=== PATIENT | male | born 1950 | race Caucasian/White ===

== ENCOUNTER 2016-12-02 10:45 | Emergency (ER) | payer OTHER ==
--- NOTE | 2016-12-02 10:55 | EDPHY ---
H & P Stated Complaint: Fever "100.3" Time Seen by Provider: 12/02/16 10:55 - Personal History Current Tetanus Diphtheria and Acellular Pertussis (TDAP): Yes - Medical/Surgical History Other PMH: Bladder stones - Social History Smoking Status: Never smoked Constitutional: Initial Vital Signs Temperature (C) 37.9 C 12/02/16 10:52 Heart Rate 92 12/02/16 10:52 Respiratory Rate 16 12/02/16 10:52 Blood Pressure 133/71 H 12/02/16 10:52 O2 Sat (%) 94 12/02/16 10:52 O2 Delivery Mode Room Air Allergies/Adverse Reactions: Penicillins Allergy (Mild, Verified 02/26/11 14:14) Rash Home Medications: Medication Instructions Recorded Nitrofurantoin Monohyd/M-Cryst 100 mg PO BID #30 capsule 12/02/16 [Macrobid 100 mg Capsule] Medical Decision Making ED Course/Re-evaluation: CHIEF COMPLAINT: UTI symptoms HISTORY OF PRESENT ILLNESS: The patient is a 66 y/o male arriving with his complaining of a fever and UTI symptoms for the last couple weeks. He has a history of "14 bladder stones" and is scheduled for surgery to remove these next week. He was treated for a UTI about 1 month ago with what sounds like Macrobid. His symptoms improved for about 10 days and then gradually returned. He has some dysuria and the sensation of a spasm while urinating. This morning he had a fever of 100.3F. He denies flank pain, vomiting, nausea, or abdominal pain. He denies other pertinent medical history. REVIEW OF SYSTEMS: A 10 point review of systems was performed and is negative with the exception of the elements mentioned in the history of present illness. PHYSICAL EXAM: HR, BP, O2 Sat, RR. Temp noted General Appearance: Alert, well hydrated, appropriate, and non-toxic appearing. Head: Atraumatic without scalp tenderness or obvious injury Eyes: Pupils equal, round, reactive to light and accommodation, EOMI, no trauma , no injection. Nose: Atraumatic, no rhinorrhea, clear. Throat: Mucus membranes moist. Neck: Supple, nontender, no lymphadenopathy. Respiratory: No retractions, no distress, no wheezes, and no accessory muscle use. Lungs are clear to auscultation bilaterally. Cardiovascular: Regular rate and rhythm, no murmurs, rubs, or gallops. Good capillary refill all extremities. Gastrointestinal: Abdomen is soft, nontender, non-distended, no masses, no rebound, no guarding, no peritoneal signs. Musculoskeletal: Normal active ROM of all extremities, atraumatic. Neurological: Alert, appropriate, and interactive. Nonfocal neuro exam. Skin: No rashes, good turgor, no nodules on palpation. Past medical history: Bladder stones, basal cell carcinoma Past surgical history: cystoscopy [address] Zuleta Family history: noncontributory Social history: at bedside. Urologist: Dr. Gilberto Garcia Prior medical records reviewed including surgical note 02/28/11. DIAGNOSTICS/PROCEDURES/CRITICAL CARE TIME: The 12 lead EKG was interpreted by myself. Sinus rhythm rate 71 with early repolarization. See hard copy and/or "tracemaster" electronic copy for interpretation. The repeat 12 lead EKG was interpreted by myself. Sinus rhythm rate 68 with early repolarization. See hard copy and/or "tracemaster" electronic copy for interpretation. DIFFERENTIAL DIAGNOSIS: The differential diagnosis for the patient's fever included but was not limited to pneumonia, urinary tract infection, viral syndrome, meningitis, and sepsis. MEDICAL DECISION MAKING: This is a 66 y/o male with known bladder stones and recent UTI who presents with recurrent UTI symptoms for the last couple weeks. He is well-appearing on exam without abdominal tenderness. Plan for IV, sepsis labs, and UA. Patient experienced a vagal episode during IV placement with resolving bradycardia and hypotension. His states this has happened several times previously during blood draws and he responds exactly the same each time. We will check an EKG as well. His EKG shows sinus mechanism with ST changes that are likely due to repolarization. We have no prior EKGs available for comparison. He has no chest pain, shortness of breath, other symptoms, or known cardiac risk factors. Repeat EKG is similar. Patient will receive 1gm IV Ceftriaxone here and be discharged with Macrobid for his UTI as this has worked for him in the past. He has urology follow up scheduled for next week. We've given strict return precautions. He is comfortable with this plan. - Data Points Laboratory Results: Laboratory Results 12/02/16 11:10 12/02/16 11:10 12/02/16 12/02/16 12/02/16 11:10 11:10 11:10 WBC 13.41 10^3/uL H 10^3/uL (3.80-9.50) RBC 4.85 10^6/uL 10^6/uL (4.40-6.38) Hgb 15.7 g/dL g/dL (13.7-17.5) Hct 44.2 % % (40.0-51.0) MCV 91.1 fL fL (81.5-99.8) MCH 32.4 pg pg (27.9-34.1) MCHC 35.5 g/dL g/dL (32.4-36.7) RDW 12.9 % % (11.5-15.2) Plt Count 180 10^3/uL 10^3/uL (150-400) MPV 10.6 fL fL (8.7-11.7) Neut % (Auto) 85.3 % H % (39.3-74.2) Lymph % (Auto) 5.3 % L % (15.0-45.0) [place] % (Auto) 8.7 % % (4.5-13.0) Eos % (Auto) 0.1 % L % (0.6-7.6) Baso % (Auto) 0.1 % L % (0.3-1.7) Nucleat RBC Rel Count 0.0 % % (0.0-0.2) Absolute Neuts (auto) 11.43 10^3/uL H 10^3/uL (1.70-6.50) Absolute Lymphs (auto) 0.71 10^3/uL L 10^3/uL (1.00-3.00) Absolute Monos (auto) 1.17 10^3/uL H 10^3/uL (0.30-0.80) Absolute Eos (auto) 0.01 10^3/uL L 10^3/uL (0.03-0.40) Absolute Basos (auto) 0.02 10^3/uL 10^3/uL (0.02-0.10) Absolute Nucleated RBC 0.00 10^3/uL 10^3/uL (0-0.01) Immature Gran % 0.5 % % (0.0-1.1) Immature Gran # 0.07 10^3/uL 10^3/uL (0.00-0.10) PT 14.1 SEC SEC (12.0-15.0) INR 1.10 (0.83-1.16) APTT 27.4 SEC SEC (23.0-38.0) VBG Lactic Acid Sodium 136 mEq/L mEq/L (134-144) Potassium 4.1 mEq/L mEq/L (3.5-5.2) Chloride 100 mEq/L mEq/L (97-110) Carbon Dioxide 24 mEq/l mEq/l (22-31) Anion Gap 12 mEq/L mEq/L (8-16) BUN 15 mg/dL mg/dL (7-23) Creatinine 1.0 mg/dL mg/dL (0.7-1.3) Estimated GFR > 60 Glucose 120 mg/dL H mg/dL (70-100) Calcium 9.3 mg/dL mg/dL (8.5-10.4) Total Bilirubin 1.0 mg/dL mg/dL (0.1-1.4) Urine Color Urine Appearance Urine pH Ur Specific [place] Urine Protein Urine Ketones Urine Blood Urine Nitrate Urine Bilirubin Urine Urobilinogen Ur Leukocyte Esterase Urine RBC Urine WBC Ur Epithelial Cells Urine Mucus Urine Glucose 12/02/16 12/02/16 11:10 10:55 WBC RBC Hgb Hct MCV MCH MCHC RDW Plt Count MPV Neut % (Auto) Lymph % (Auto) [place] % (Auto) Eos % (Auto) Baso % (Auto) Nucleat RBC Rel Count Absolute Neuts (auto) Absolute Lymphs (auto) Absolute Monos (auto) Absolute Eos (auto) Absolute Basos (auto) Absolute Nucleated RBC Immature Gran % Immature Gran # PT INR APTT VBG Lactic Acid 1.5 mmol/L mmol/L (0.7-2.1) Sodium Potassium Chloride Carbon Dioxide Anion Gap BUN Creatinine Estimated GFR Glucose Calcium Total Bilirubin Urine Color YELLOW Urine Appearance HAZY Urine pH 5.0 (5.0-7.5) Ur Specific [place] 1.015 (1.002-1.030) Urine Protein NEGATIVE (NEGATIVE) Urine Ketones NEGATIVE (NEGATIVE) Urine Blood 1+ H (NEGATIVE) Urine Nitrate NEGATIVE (NEGATIVE) Urine Bilirubin NEGATIVE (NEGATIVE) Urine Urobilinogen NEGATIVE EU EU (0.2-1.0) Ur Leukocyte Esterase 1+ H (NEGATIVE) Urine RBC 5-10 /hpf H /hpf (0-3) Urine WBC 15-25 /hpf H /hpf (0-3) Ur Epithelial Cells TRACE /lpf /lpf (NONE-1+) Urine Mucus 2+ /lpf H /lpf (NONE-1+) Urine Glucose 2+ H (NEGATIVE) Medications Given: Discontinued Medications Sodium Chloride (Ns) 1,000 mls @ 0 mls/hr IV ONCE ONE PRN Reason: Wide Open Stop: 12/02/16 11:44 Last Admin: 12/02/16 11:00 Dose: 1,000 mls Departure - Departure Disposition: Home, Routine, Self-Care Clinical Impression: UTI (urinary tract infection) Qualifiers: Urinary tract infection type: acute cystitis Hematuria presence: without hematuria Qualified Code(s): N30.00 - Acute cystitis without hematuria Condition: Good Instructions: Nitrofurantoin Combination (By mouth), Urinary Tract Infection in Men (ED) Additional Instructions: 1. Take Macrobid as prescribed. Be sure to complete the entire prescription. 2. Use Tylenol and ibuprofen as directed on the packaging as needed for pain or fever over the next few days. 3. Follow up with your urologist as scheduled. 4. Return to the ED for any worsening of condition. Referrals: MARION LARA [Other] - As per Instructions Ziggy Zuleta MD [Medical Doctor] - As per Instructions Prescriptions: Nitrofurantoin Monohyd/M-Cryst [Macrobid 100 mg Capsule] 100 mg PO BID #30 capsule Report Scribed for: Ja Dugan Report Scribed by: Darlene Hayward Date of Report: 12/02/16 Time of Report: 11:44
[2016-12-02 11:10] LABS: COLOR YELLOW; LEUKOCYTE ESTERASE,URINE 1+ (NEGATIVE); NITRITE,URINE NEGATIVE (NEGATIVE)
[2016-12-02 11:17] LABS: MUCUS 2+ /lpf (NONE-1+); WBC,URINE 15-25 /hpf (0-3)
--- NOTE | 2016-12-02 11:20 | CPEKG ---
Heart Rate: 71 RR Interval: 845 P-R Interval: 152 QRSD Interval: 94 QT Interval: 376 QTC Interval: 409 P [place]: 66 QRS [place]: 45 T Wave [place]: 54 EKG Severity - ABNORMAL ECG - EKG Impression: SINUS RHYTHM EKG Impression: PROBABLE INFERIOR INFARCT, AGE INDETERMINATE EKG Impression: MINIMAL ST ELEVATION, ANTERIOR LEADS Electronically Signed By: Ja Dugan 02-Dec-2016 14:03:49
[2016-12-02 11:21] LABS: % IMMATURE GRANULYOCYTES 0.5 % (0.0-1.1); ABSOLUTE IMMATURE GRANULOCYTES 0.07 10^3/uL (0.00-0.10); ADD DIFF? NO; ADD MORPH? NO; ADD SCAN? NO; ATYPICAL LYMPHOCYTE FLAG 0 (0-99); FRAGMENT RBC FLAG 0 (0-99); HEMATOCRIT 44.2 % (40.0-51.0); HEMOGLOBIN 15.7 g/dL (13.7-17.5); LEFT SHIFT FLG 10 (0-99); LIPEMIA HEMOLYSIS FLAG 90 (0-99); MEAN CELL HEMOGLOBIN 32.4 pg (27.9-34.1); MEAN CELL HEMOGLOBIN CONCENTR. 35.5 g/dL (32.4-36.7); MEAN CELL VOLUME 91.1 fL (81.5-99.8); MEAN PLATELET VOLUME 10.6 fL (8.7-11.7); PLATELET CLUMPS FLAG 10 (0-99); PLATELET COUNT 180 10^3/uL (150-400); RED BLOOD CELL COUNT 4.85 10^6/uL (4.40-6.38); RED CELL DISTRIBUTION WIDTH 12.9 % (11.5-15.2)
[2016-12-02 11:31] LABS: INR 1.1 (0.83-1.16); PROTIME(PATIENT) 14.1 SEC (12.0-15.0)
[2016-12-02 11:32] LABS: APTT 27.4 SEC (23.0-38.0)
[2016-12-02 11:42] LABS: ANION GAP 12 mEq/L (8-16); CALCIUM 9.3 mg/dL (8.5-10.4); CARBON DIOXIDE 24 mEq/l (22-31); CHLORIDE 100 mEq/L (97-110); GLOMERULAR FILTRATION RATE > 60; GLUCOSE 120 mg/dL (70-100); POTASSIUM 4.1 mEq/L (3.5-5.2); SODIUM 136 mEq/L (134-144)
[2016-12-02] MEDS ORDERED: NS 1,000 ML IV ONE (11:43)
[2016-12-02 11:55] VITALS: TEMP 98.6
--- NOTE | 2016-12-02 11:58 | CPEKG ---
Heart Rate: 68 RR Interval: 882 P-R Interval: 144 QRSD Interval: 92 QT Interval: 392 QTC Interval: 417 P [place]: 70 QRS [place]: 31 T Wave [place]: 42 EKG Severity - ABNORMAL ECG - EKG Impression: SINUS RHYTHM EKG Impression: PROBABLE INFEROLATERAL INFARCT, AGE INDETERM Electronically Signed By: Ja Dugan 02-Dec-2016 14:03:49
[2016-12-02 12:31] VITALS: BP 110/56; PULSE 69; RESP 16; O2SAT 97
== END 2016-12-02 12:31 | disposition home or self-care (01) ==
DX: N30.00 Acute cystitis without hematuria (principal)
CPT/HCPCS: 96365; J0696